=== PATIENT | female | born 1955 | race Caucasian/White ===

== ENCOUNTER → 2021-03-17 | Day surgery (SDC) | payer MEDICARE, BC ==
[~2021-03-17] MED LIST: Lactated Ringers 1,000 ML IV SCH; Propofol 200 MG/20 ML SDV ONE; fentaNYL 100 MCG/2 ML SDV ONE
[2021-03-17 09:08] VITALS: BP 127/56; PULSE 64
--- NOTE | 2021-03-17 10:42 | OR ---
DATE OF OPERATION: 03/17/2021 PREOPERATIVE DIAGNOSIS: FAMILY HISTORY OF COLON CANCER. POSTOPERATIVE DIAGNOSIS: FAMILY HISTORY OF COLON CANCER. SURGEON: Guilherme Jay MD PROCEDURE: FULL-LENGTH COLONOSCOPY. ANESTHESIA: MAC. COMPLICATIONS: None. SPECIMEN: None. FINDINGS: 1. Full-length colonoscopy. 2. Bedoya diverticulosis, moderate to severe. 3. Marginal prep. RECOMMENDATIONS: Followup colonoscopy every 5 years. INDICATIONS: Gabi Deal sent the patient for family history of colon cancer. It has been 5 years since her last scope. DESCRIPTION OF PROCEDURE: The patient was prepped and draped, placed in the left lateral decubitus position. A lubricated Olympus colonoscope was inserted and with relative ease advanced to the cecum. Direct visualization of the ileocecal valve was accomplished as well as the appendiceal orifice. The patient had a lot of stool throughout the colon, most could be suctioned, but there was a lot of particulate matter, certainly 20% of the colon was difficult to see just due to the volume of stool and smaller lesions certainly might have been missed. Upon withdrawal, throughout the length of the colon, I could find no polyps, masses, ulceration, or bleeding sites. No vascular abnormalities or signs of colitis. The patient does have bedoya diverticulosis moderate at least, severe in the sigmoid. No inflammatory changes were seen. The rectal vault appeared benign. Retroflexion of the scope in the rectum showed no anal lesions. Air was suctioned and the scope was removed without complication. CIARA/SARAH /[id number]
== END ==
LOC: CC.SDS 07:17
PROVIDERS: ATTEND Family Medicine
DX: Z12.11 Encounter for screening for malignant neoplasm of colon (principal); K57.30 Diverticulosis of large intestine without perforation or abscess without bleeding; I10 Essential (primary) hypertension; E78.00 Pure hypercholesterolemia, unspecified; E11.9 Type 2 diabetes mellitus without complications; Z79.82 Long term (current) use of aspirin; Z79.899 Other long term (current) drug therapy; Z79.4 Long term (current) use of insulin; Z80.0 Family history of malignant neoplasm of digestive organs; Z98.890 Other specified postprocedural states
CPT/HCPCS: G0105; J2704; J3010; J7120; 00812